=== PATIENT | male | born 1980 | race Caucasian/White ===

== ENCOUNTER 2017-11-07 12:55 | Emergency (ER) | payer OTHER ==
[~2017-11-07] VITALS: Ht 180.3 cm; Wt 111.1 kg
[2017-11-07 13:14] VITALS: BP 144/68
[2017-11-07 14:23] VITALS: BP 132/64
== END 2017-11-07 14:24 | disposition home or self-care (01) ==
LOC: MED 12:55
DX: S39.012A Strain of muscle, fascia and tendon of lower back, initial encounter (principal); R03.0 Elevated blood-pressure reading, without diagnosis of hypertension; Z88.0 Allergy status to penicillin; V43.52XA Car driver injured in collision with other type car in traffic accident, initial encounter; Y93.89 Activity, other specified; Y99.8 Other external cause status; Y92.411 Interstate highway as the place of occurrence of the external cause
CPT/HCPCS: 99283

== ENCOUNTER 2017-11-30 07:10 | Emergency (ER) | payer OTHER ==
[~2017-11-30] VITALS: Ht 180.3 cm; Wt 102.1 kg
[2017-11-30 07:22] VITALS: BP 122/108
[2017-11-30] MEDS ORDERED: traMADol 50 MG TAB PO ONE (07:45)
[2017-11-30] MEDS ORDERED: KETOROLAC 60 MG/2 ML VIAL IM ONE (07:45)
[2017-11-30 09:23] VITALS: BP 100/54
== END 2017-11-30 09:20 | disposition home or self-care (01) ==
LOC: MED 07:10
DX: S33.5XXA Sprain of ligaments of lumbar spine, initial encounter (principal); S39.012A Strain of muscle, fascia and tendon of lower back, initial encounter; Z88.0 Allergy status to penicillin; V89.2XXA Person injured in unspecified motor-vehicle accident, traffic, initial encounter; Y93.89 Activity, other specified; Y92.410 Unspecified street and highway as the place of occurrence of the external cause; Y99.8 Other external cause status
CPT/HCPCS: 72110; 96372; 99284; J1885

== ENCOUNTER 2018-05-30 19:38 | Emergency (ER) | payer SELFPAY ==
[~2018-05-30] VITALS: Ht 180.3 cm; Wt 113.4 kg
[2018-05-30 19:48] VITALS: BP 132/87
--- NOTE | 2018-05-30 19:52 | NUR ---
pt triaged and placed in bed 6, urine obtained.
--- NOTE | 2018-05-30 19:56 | NUR ---
PT c/o fevers, NVD, abd pain general 10/10 x 2 days. Temp 97.3 temporal on arrival. Urine cup given. PT admits N/V/D; SKIN IS INTACT, PINK/WARM/DRY; AAOX4, PERRL, WITH EVEN AND STEADY GAIT; LUNGS CLEAR BL, BREATHING UNLABORED; HR EVEN AND REGULAR, BL PERIPHERAL PULSES PRESENT; BS ACTIVE X4, NO TENDERNESS TO PALPATION, NO HEPATOSPLENOMEGALLY PALPATED, RESONANT TO PERCUSSION; PT DENIES ANY FEVER, CP, SOB, OR COUGH AT THIS TIME; PT STATES 10/10 PAIN AT THIS TIME; VSS; PATIENT POSITIONED FOR COMFORT; HOB ELEVATED; BEDRAILS UP X2; BED DOWN.
--- NOTE | 2018-05-30 20:32 | NUR ---
report given to Katelynn HARGROVE
[2018-05-30 20:34] VITALS: BP 132/87
--- NOTE | 2018-05-30 20:34 | NUR ---
Patient discharged with v/s stable. Written and verbal after care instructions given and explained. Patient alert, oriented and verbalized understanding of instructions. Ambulatory with steady gait. All questions addressed prior to discharge. ID band removed. Patient advised to follow up with PMD. Rx of CIPROFLOXACIN WAS given. Patient educated on indication of medication including possible reaction and side effects. Opportunity to ask questions provided and answered. DR. JOHNSON DISCHARGED PATIENT.
== END 2018-05-30 20:34 | disposition home or self-care (01) ==
LOC: MED 19:38
DX: A09 Infectious gastroenteritis and colitis, unspecified (principal); Z88.0 Allergy status to penicillin; Z98.890 Other specified postprocedural states
CPT/HCPCS: 81002; 99283